=== PATIENT | female | born 1970 | race Caucasian/White ===

== ENCOUNTER 2023-09-28 10:20 | Outpatient (CLI) | payer BC, SELFPAY ==
[2023-09-28 10:14] LABS: Microscopic, Urine URINE MICROSCOPIC (MICROSCOPIC)
[2023-09-28 10:47] LABS: Appearance,Urine CLEAR (Clear); Bilirubin,Urine Negative (Negative); Blood, Urine Negative (Negative); Color,Urine YELLOW (Yellow); Glucose,Urine (UA) 3+ (Negative); Ketones,Urine Negative (Negative); Leukocyte Esterase,Urine Negative (Negative); Nitrate,Urine Negative (Negative); Protein,Urine TRACE (Negative); Specific Gravity, Urine 1.025 (1.005-1.030); Urobilinogen,Urine 0.2 EU/dl (0.2)
[2023-09-28 10:49] LABS: Basophils # 0.1 K/mm3 (0-0.2); Basophils % 1.4 % (0.1-2.0); Hematocrit 37.7 % (37.0-47.0); Hemoglobin 11.9 g/dL (12.2-16.2); Lymphocytes # 1.5 K/mm3 (0.7-4.5); Lymphocytes % 33.7 % (10-50); Mean Corpuscular HGB Conc 31.6 g/dL (31.8-35.4); Mean Corpuscular Hemoglobin 23.7 pg (27.0-31.2); Mean Corpuscular Volume 75.1 fl (81-99); Monocytes # 0.2 K/mm3 (0.1-1.0); Monocytes % 3.9 % (1.7-9.3); Neutrophils # 2.7 K/mm3 (1.8-7.8); Neutrophils % 59.9 % (37.0-80.0); Platelet Count 210 K/mm3 (142-424); Red Blood Count 5.02 M/mm3 (4.20-5.40); Red Cell Distribution Width 15.8 % (11.5-17.5); White Blood Count 4.5 K/mm3 (4.8-10.8)
[2023-09-28 10:57] LABS: Creatinine,Urine Random 233 mg/dL (Not Estab.)
[2023-09-28 11:00] LABS: Microalbumin/Creatinine Ratio 9.4
[2023-09-28 11:20] LABS: Bacteria,Urine Trace /lpf; Calcium Oxalate Crystals,Urine Trace /lpf; Mucus,Urine Trace /lpf; WBC,Urine Occasional #/hpf (0-3)
[2023-09-28 11:46] LABS: Chloride 100 mmol/L (98-107); Sodium 134 mmol/L (136-145)
[2023-09-28 11:47] LABS: Potassium 4.4 mmoL/L (3.5-5.1)
[2023-09-28 11:49] LABS: Alanine Aminotransferase 19 U/L (12-78); Albumin Level 4.1 g/dl (3.5-5.0); Albumin/Globulin Ratio 1.8 (1.1-1.8); Alkaline Phosphatase 99 U/L (38-126); Anion Gap 11.4 mEq/L (5-15); Aspartate Amino Transferase 25 U/L (14-36); Bilirubin,Total 0.7 mg/dl (0.2-1.3); Blood Urea Nitrogen 9 mg/dl (7-17); Calcium 9.2 mg/dl (8.4-10.2); Carbon Dioxide 27 mmol/L (22.0-30.0); Cholesterol 196 mg/dl (140-200); Estimated Glomerular Filt Rate 130 ml/min (>60); GFR (African American) 157 ML/MIN (>60); Globulin 2.3 g/dL (1.3-3.2); Glucose 318 mg/dl (74-100); Iron 45 ug/dL (37-170); Total Protein,Serum 6.4 g/dl (6.3-8.2); Triglycerides 77 mg/dl (30-150); VLDL Cholesterol 15 mg/dL (0-40)
[2023-09-28 11:50] LABS: Chol/HDL Ratio 2.6 (1-3.5); HDL Cholesterol 74 mg/dl (40-60)
[2023-09-28 11:56] LABS: Hemoglobin A1C 10.1 % (4.0-6.0)
[2023-09-28 11:59] LABS: Total Iron Binding Capacity 372 ug/dL (265-497)
[2023-09-28 12:10] LABS: Free T4 (Free Thyroxine) 1.04 ng/dl (0.78-2.19)
[2023-09-28 12:23] LABS: Thyroid Stimulating Hormone 0.93 uIU/mL (0.465-4.68)
[2023-09-28 12:26] LABS: Ferritin 4.99 ng/ml (11.1-264)
[2023-09-28 12:36] LABS: Direct LDL Cholesterol 97.12 mg/dL (100-129)
[2023-09-28 13:14] LABS: Vitamin B12 390 pg/mL (239-931)
[2023-09-28 14:50] LABS: 25-OH Vitamin D, Total 27.3 ng/mL (30-100)
== END 2023-09-28 23:59 | disposition home or self-care (01) ==
LOC: LAB.DROPOF 10:20
PROVIDERS: PCP Nurse Practitioner Family; Visit Provider Nurse Practitioner Family
DX: D64.9 Anemia, unspecified (principal); E11.9 Type 2 diabetes mellitus without complications; Z79.85 Long-term (current) use of injectable non-insulin antidiabetic drugs; Z79.84 Long term (current) use of oral hypoglycemic drugs; E78.5 Hyperlipidemia, unspecified; E55.9 Vitamin D deficiency, unspecified; R53.83 Other fatigue
CPT/HCPCS: 80050; 80053; 80061; 81001; 82043; 82306; 82570; 82607; 82728; 83036; 83540; 83550; 84439; 84443; 85025; 87086

== ENCOUNTER 2023-10-26 08:46 | Outpatient (CLI) | payer BC, SELFPAY ==
--- NOTE | 2023-10-26 08:47 | XR_ITS ---
FINAL REPORT TECHNIQUE: Bone densitometry calculations of the lumbar spine and left hip were obtained. CLINICAL HISTORY: History of multiple fractures, postmenopausal. COMPARISON: none FINDINGS: Using L1-4, the bone mineral density of the spine is 0.841 g/cm2, corresponding to T-score of -1.9 and a Z score of -1.0. This is within the range of osteopenia. Using the left hip, the bone mineral density of the femoral neck is 0.665 g/cm2, corresponding to a T-score of -1.7 and a Z-score of -0.8. This is within the range of osteopenia. NOTE: T-score: Standard deviation compared with peak bone mass of young adult mean. *Following the recommendations of the International Society of Bone densitometry, classification of hip BMD is based on the lower of two T-scores; total hip or femoral neck. IMPRESSION: 1. Bone mineral density of the lumbar spine within the range of osteopenia. 2. Bone mineral density of the left femoral neck within the range of osteopenia. Reviewed, Interpreted and Dictated by Denisse White MD Transcribed by Sol Singh Authenticated and [facility]
== END 2023-10-26 23:59 | disposition home or self-care (01) ==
LOC: RAD 08:47
PROVIDERS: PCP Nurse Practitioner Family; Visit Provider Nurse Practitioner Family
DX: Z78.0 Asymptomatic menopausal state (principal)
CPT/HCPCS: 77080

== ENCOUNTER 2023-12-07 11:06 | Outpatient (CLI) | payer BC, SELFPAY ==
[2023-12-07 11:22] LABS: Microscopic, Urine URINE MICROSCOPIC (MICROSCOPIC)
[2023-12-07 11:49] LABS: Basophils # 0.1 K/mm3 (0-0.2); Basophils % 1.6 % (0.1-2.0); Eosinophils # 0.1 K/mm3 (0.0-0.4); Eosinophils % 1.1 % (0.1-12.0); Hematocrit 38.9 % (37.0-47.0); Hemoglobin 12.1 g/dL (12.2-16.2); Lymphocytes # 1.5 K/mm3 (0.7-4.5); Lymphocytes % 32.5 % (10-50); Mean Corpuscular Hemoglobin 23.2 pg (27.0-31.2); Mean Corpuscular Volume 74.7 fl (81-99); Mean Platelet Volume 9.8 fl (7.4-10.4); Monocytes # 0.2 K/mm3 (0.1-1.0); Monocytes % 4.5 % (1.7-9.3); Neutrophils # 2.7 K/mm3 (1.8-7.8); Neutrophils % 60.3 % (37.0-80.0); Platelet Count 197 K/mm3 (142-424); Red Blood Count 5.21 M/mm3 (4.20-5.40); Red Cell Distribution Width 16.8 % (11.5-17.5); White Blood Count 4.5 K/mm3 (4.8-10.8)
[2023-12-07 11:52] LABS: Appearance,Urine CLEAR (Clear); Bilirubin,Urine Negative (Negative); Blood, Urine Negative (Negative); Color,Urine YELLOW (Yellow); Glucose,Urine (UA) 3+ (Negative); Ketones,Urine Negative (Negative); Leukocyte Esterase,Urine Negative (Negative); Nitrate,Urine Negative (Negative); Protein,Urine Negative (Negative); Urobilinogen,Urine 0.2 EU/dl (0.2)
[2023-12-07 12:06] LABS: Squamous Epithelial Cell,Urine Occasional #/hpf (0-5)
[2023-12-07 12:47] LABS: Iron 51 ug/dL (37-170)
[2023-12-07 12:57] LABS: Total Iron Binding Capacity 394 ug/dL (265-497)
[2023-12-07 13:24] LABS: Ferritin 5.64 ng/ml (11.1-264)
== END 2023-12-07 23:59 | disposition home or self-care (01) ==
LOC: LAB 11:09
PROVIDERS: PCP Nurse Practitioner Family; Visit Provider Internal Medicine Medical Oncology
DX: D50.9 Iron deficiency anemia, unspecified (principal)
CPT/HCPCS: 36415; 81001; 82728; 83540; 83550; 85025

== ENCOUNTER 2023-12-08 12:48 | Outpatient (CLI) | payer BC, SELFPAY ==
--- NOTE | 2023-12-08 12:50 | MM_ITS ---
PROCEDURE INFORMATION: Exam: MG Bilateral Screening 3D Mammography Exam date and time: 12/08/2023 12:46 PM Age: 53 years old Clinical indication: Screening mammogram. TECHNIQUE: Imaging protocol: Bilateral Screening tomosynthesis and 2D mammography including computer-aided detection (CAD) when performed. COMPARISON: No relevant prior studies available. FINDINGS: MAMMOGRAPHY: Breast composition: The breast is heterogeneously dense, which may obscure small masses. Mass: None. Architectural distortion: No new or suspicious architectural distortion. Calcifications: No new or suspicious calcifications are present Asymmetric density: No new or suspicious asymmetric density is present Skin thickening: None. Axillary adenopathy: None. IMPRESSION: No mammographic evidence of malignancy. Recommend annual screening mammography unless otherwise clinically indicated. ASSESSMENT: BI-RADS category 1: Negative.
== END 2023-12-08 23:59 | disposition home or self-care (01) ==
LOC: RAD 12:48
PROVIDERS: PCP Nurse Practitioner Family; Visit Provider Nurse Practitioner Family
DX: Z12.31 Encounter for screening mammogram for malignant neoplasm of breast (principal)
CPT/HCPCS: 77063; 77067

== ENCOUNTER 2023-12-20 09:42 | Outpatient (CLI) | payer BC, SELFPAY ==
[2023-12-20] MEDS: IRON SUCROSE COMPLEX 200 MG in 0.9 % SODIUM CHLORIDE 100 ML 220 MG IV (10:06)
[2023-12-20] MEDS: SODIUM CHLORIDE 0.9% 50ML BAG 50 ML IV (10:06)
[2023-12-20 10:10] VITALS: BP 108/65; PULSE 73; RESP 18; TEMP 36.4; O2SAT 100
[2023-12-20 10:55] VITALS: BP 117/68; PULSE 64; RESP 18; O2SAT 100
== END 2023-12-20 10:55 | disposition home or self-care (01) ==
LOC: INF 09:43
PROVIDERS: PCP Nurse Practitioner Family; Visit Provider Internal Medicine Medical Oncology
DX: D50.9 Iron deficiency anemia, unspecified (principal)
CPT/HCPCS: 96365; J1756

== ENCOUNTER 2023-12-27 09:53 | Outpatient (CLI) | payer BC, SELFPAY ==
[2023-12-27] MEDS: SODIUM CHLORIDE 0.9% 50ML BAG 50 ML IV (10:15)
[2023-12-27] MEDS: IRON SUCROSE COMPLEX 200 MG in 0.9 % SODIUM CHLORIDE 100 ML 220 MG IV (10:15)
[2023-12-27 10:18] VITALS: BP 108/63; PULSE 78; RESP 18; O2SAT 100
[2023-12-27 10:28] LABS: Alanine Aminotransferase 30 U/L (12-78); Albumin Level 4.1 g/dl (3.5-5.0); Albumin/Globulin Ratio 1.6 (1.1-1.8); Alkaline Phosphatase 81 U/L (38-126); Anion Gap 8.1 mEq/L (5-15); Aspartate Amino Transferase 36 U/L (14-36); Bilirubin,Total 0.7 mg/dl (0.2-1.3); Blood Urea Nitrogen 7 mg/dl (7-17); Calcium 9.1 mg/dl (8.4-10.2); Carbon Dioxide 29 mmol/L (22.0-30.0); Chloride 103 mmol/L (98-107); Estimated Glomerular Filt Rate 130 ml/min (>60); GFR (African American) 157 ML/MIN (>60); Globulin 2.6 g/dL (1.3-3.2); Glucose 310 mg/dl (74-100); Potassium 4.1 mmoL/L (3.5-5.1); Sodium 136 mmol/L (136-145); Total Protein,Serum 6.7 g/dl (6.3-8.2)
[2023-12-27 11:00] VITALS: BP 119/68; PULSE 77; RESP 18; O2SAT 100
[2023-12-27 13:06] LABS: Hemoglobin A1C 11.1 % (4.0-6.0)
[2023-12-27 23:15] LABS: 25-OH Vitamin D, Total 37.1 ng/mL (30-100)
== END 2023-12-27 11:00 | disposition home or self-care (01) ==
LOC: INF 09:54
PROVIDERS: PCP Nurse Practitioner Family; Visit Provider Internal Medicine Medical Oncology
DX: E11.9 Type 2 diabetes mellitus without complications (principal); E55.9 Vitamin D deficiency, unspecified; M85.80 Other specified disorders of bone density and structure, unspecified site; D50.9 Iron deficiency anemia, unspecified
CPT/HCPCS: 80053; 82306; 83036; 96365; J1756

== ENCOUNTER 2023-12-29 09:17 | Outpatient (CLI) | payer BC, SELFPAY ==
--- NOTE | 2023-12-29 09:21 | CT_ITS ---
FINAL REPORT TECHNIQUE: Pre-and postcontrast axial CT images of the abdomen and pelvis were obtained. Coronal reformatted images were also obtained and reviewed. This study was performed with techniques to keep radiation doses as low as reasonably achievable (ALARA). Individualized dose reduction techniques using automated exposure control or adjustment of mA and/or kV according to the patient's size were employed. CLINICAL HISTORY: LT FLANK PAIN. hx of nutcracker syndrome COMPARISON: None FINDINGS: Of the pre infusion images, there is no evidence of kidney stones. Postoperative changes are noted within bowel loops in the right hemiabdomen. On the post infusion images, the liver is homogeneous. The gallbladder is surgically absent. The spleen, pancreas, adrenal glands, and kidneys are unremarkable. There are multiple fluid-filled loops of bowel in the right hemiabdomen, particularly in the right upper quadrant, probably postsurgical. Vascular imaging demonstrates markedly compressed left renal vein by the crossing superior mesenteric artery, best seen on images 33-36 of series 5. Findings are consistent with patient's known history of nutcracker syndrome. There is altered surgical anatomy and the duodenum is not seen crossing the aorta. Imaging through the pelvis demonstrates asymmetric left pelvic venous congestion. The urinary bladder is decompressed. The uterus is midline. IMPRESSION: Extrinsic compression of the left renal vein with left gonadal venous congestion. Postoperative changes in the right upper quadrant with fluid-filled loops of small bowel. Reviewed, Interpreted and Dictated by Mc Rod MD Transcribed by Sol Singh Authenticated and [facility]
[2023-12-29] MEDS: IOPAMIDOL-370 (76%);100ML BOTTLE 75 ML IV (09:42)
[2023-12-29] MEDS: SODIUM CHLORIDE 0.9% 10ML SYR (RAD ONLY) 10 ML IV (09:42)
== END 2023-12-29 23:59 | disposition home or self-care (01) ==
LOC: RAD 09:18
PROVIDERS: PCP Nurse Practitioner Family; Visit Provider Nurse Practitioner Family
DX: R10.9 Unspecified abdominal pain (principal)
CPT/HCPCS: 74178; Q9967

== ENCOUNTER 2024-01-03 09:42 | Outpatient (CLI) | payer BC, SELFPAY ==
[2024-01-03 10:00] VITALS: BP 98/60; PULSE 62; RESP 18; TEMP 36.4; O2SAT 100
[2024-01-03] MEDS: SODIUM CHLORIDE 0.9% 50ML BAG 50 ML IV (10:00)
[2024-01-03] MEDS: IRON SUCROSE COMPLEX 200 MG in 0.9 % SODIUM CHLORIDE 100 ML 220 MG IV (10:00)
[2024-01-03] MEDS: SODIUM CHLORIDE 0.9% 10ML FLUSH SYRINGE 10 ML IV (10:00)
[2024-01-03 10:35] VITALS: BP 108/61; PULSE 84; RESP 16; TEMP 36.4; O2SAT 100
== END 2024-01-03 10:40 | disposition home or self-care (01) ==
LOC: INF 09:42
PROVIDERS: PCP Nurse Practitioner Family; Visit Provider Internal Medicine Medical Oncology
DX: D50.9 Iron deficiency anemia, unspecified (principal)
CPT/HCPCS: 96365; J1756

== ENCOUNTER 2024-01-10 08:47 | Outpatient (CLI) | payer BC, SELFPAY ==
[2024-01-10 09:07] VITALS: BP 127/59; PULSE 78; RESP 16; TEMP 36.1; O2SAT 100; BMI 20.5
[2024-01-10] MEDS: IRON SUCROSE COMPLEX 200 MG in 0.9 % SODIUM CHLORIDE 100 ML 220 MG IV (09:10)
[2024-01-10] MEDS: SODIUM CHLORIDE 0.9% 50ML BAG 50 ML IV (09:21)
[2024-01-10] MEDS: SODIUM CHLORIDE 0.9% 10ML FLUSH SYRINGE 10 ML IV (09:22)
[2024-01-10 09:49] VITALS: BP 107/67; PULSE 87; RESP 18; TEMP 36.1; O2SAT 100
== END 2024-01-10 09:50 | disposition home or self-care (01) ==
LOC: INF 08:48
PROVIDERS: PCP Nurse Practitioner Family; Visit Provider Internal Medicine Medical Oncology
DX: D50.9 Iron deficiency anemia, unspecified (principal)
CPT/HCPCS: 96365; J1756

== ENCOUNTER 2024-01-17 08:50 | Outpatient (CLI) | payer BC, SELFPAY ==
[2024-01-17 09:07] VITALS: BP 113/63; PULSE 78; RESP 18; TEMP 36.9; O2SAT 100
[2024-01-17] MEDS: SODIUM CHLORIDE 0.9% 50ML BAG 50 ML IV (09:07)
[2024-01-17] MEDS: IRON SUCROSE COMPLEX 200 MG in 0.9 % SODIUM CHLORIDE 100 ML 220 MG IV (09:07)
[2024-01-17] MEDS: SODIUM CHLORIDE 0.9% 10ML FLUSH SYRINGE 10 ML IV (09:08)
[2024-01-17 09:51] VITALS: BP 123/61; PULSE 81; RESP 16; TEMP 36.7; O2SAT 100
== END 2024-01-17 09:51 | disposition home or self-care (01) ==
LOC: INF 08:51
PROVIDERS: PCP Nurse Practitioner Family; Visit Provider Internal Medicine Medical Oncology
DX: D50.9 Iron deficiency anemia, unspecified (principal)
CPT/HCPCS: 96365; J1756

== ENCOUNTER 2024-05-25 13:30 | Outpatient (CLI) | payer BC, SELFPAY | END 2024-05-25 23:59 | disposition home or self-care (01) | LOC: LAB.DROPOF 05-26 09:58 | PROVIDERS: PCP Student in an Organized Health Care Education/Training Program; Visit Provider Student in an Organized Health Care Education/Training Program | DX: N39.0 Urinary tract infection, site not specified (principal) | CPT/HCPCS: 87086 ==

== ENCOUNTER 2024-07-27 11:15 | Observation (INO) | payer BC, SELFPAY ==
[2024-07-27] VITALS (15 sets, daily range): BP systolic 111–141; BP diastolic 55–86; PULSE 60–100; RESP 14–22; TEMP 36.4–36.7; O2SAT 95–100; BMI 20.5
--- NOTE | 2024-07-27 11:16 | ECG_ITS ---
APPROVED REPORT Exam: Resting ECG HR:75 bpm ECG Measurements Heart Rate 75 AXES [place] 126 P 66 QRSd 85 QRS 84 QT 356 T 29 QTc 385 Conclusion Sinus rhythm Frequent PVCs Nonspecific ST and T wave changes Electronically signed by : MANAS VELA, 07/27/2024 15:28:04
--- NOTE | 2024-07-27 11:23 | XR_ITS ---
FINAL REPORT CLINICAL HISTORY: chest pain, left sided FINDINGS: A single view of the chest was obtained. The heart is normal in size. The mediastinum is unremarkable. The lungs are clear. There is no pleural effusion. There is no pneumothorax. There is no acute osseous abnormality. IMPRESSION: No acute cardiopulmonary process. Reviewed, Interpreted and Dictated by Mc Rod MD Transcribed by Karen Campuzano Authenticated and [facility]
[2024-07-27 11:30] LABS: Basophils # 0.1 K/mm3 (0-0.2); Basophils % 0.7 % (0.1-2.0); Eosinophils % 0.3 % (0.1-12.0); Hematocrit 43.9 % (37.0-47.0); Hemoglobin 14.8 g/dL (12.2-16.2); Lymphocytes # 1.4 K/mm3 (0.7-4.5); Lymphocytes % 20.2 % (10-50); Mean Corpuscular HGB Conc 33.7 g/dL (31.8-35.4); Mean Corpuscular Hemoglobin 27.6 pg (27.0-31.2); Mean Corpuscular Volume 81.8 fl (81-99); Mean Platelet Volume 11.3 fl (7.4-10.4); Monocytes # 0.4 K/mm3 (0.1-1.0); Monocytes % 6.1 % (1.7-9.3); Neutrophils # 4.9 K/mm3 (1.8-7.8); Neutrophils % 72.4 % (37.0-80.0); Nucleated Red Blood Cells # 0 10^3/uL; Nucleated Red Blood Cells % 0 %; Platelet Count 231 K/mm3 (142-424); Red Blood Count 5.37 M/mm3 (4.20-5.40); Red Cell Distribution Width 12.8 % (11.5-17.5); Red Cell Distribution Width-SD 37.9 fL; White Blood Count 6.7 K/mm3 (4.8-10.8)
--- OUTSIDE RECORDS SUMMARY | 2024-07-27 11:35 | XMS_ITS | Data Portability ---
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 Rodgers is a 53 year old female here for: 1) Lower abdominal pain 2) Nausea - Continue peppermints for nausea. If needs Zofran prescription she will call clinic. - Lower abdominal pain, cramping and intermittent in nature - Discussed diagnostic colon with random colon biopsies. She declines at this time. - Trial dicyclomine for abdominal cramping as needed (script sent) - Consider gynecology referral at next visit to r/o fibroids, ovarian cysts or endometriosis 3)Diarrhea - She reports no issues with constipation when she stopped her metformin - She does have history of choley so this could be bile acid diarrhea but since symptoms resolved when she stopped taking metformin, I will refer to Endocrine. 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 Reports diarrhea stopped when she quit taking metformin -Ozempic will only make her delayed gastric emptying worse. -She previously tried jardiance which cause heart arrhythmias. She was also placed on insulin once and reports 20 lb. weight gain in 1 week so it was stopped -States glucose range is 180-230 -She would like Endocrine referral to discuss other treatment options [email or web address] Not available 12/06/2023 14:37:25 Plan of Treatment Reminders Order Date Submit Date Provider Last Modified By Organization Details Last Modified Time Details Appointments None record ed. Lab urinal ysis, reflex cultur e 2023 024 [email or web address] [facility] (Lab), [address], [place], [address], 4 15:30:48 Referral None record ed. Procedures None record ed. Surgeries None record ed. Imaging CT, angiog alvin, abdome n + pelvis , w/wo contra st 2023 024 [email or web address] [facility] (Scheduling), [address], [place], [address], 4 14:33:28 Medication Orders dicycl omine 20 mg tablet 2023 024 [id number], [address] [facility] [address] [place], [id number], 4 14:24:09 Patient TargetsNo targets recorded. Patient InstructionsNo instructions recorded. Reason for Referral None Reported. Results Created Date Observation Date Name Description Value Unit Range Abnormal Flag Note LastModifiedBy Organization Detail LastModifiedTime 12/30/19 24 12/29/2023 CT, abdom en + pelvi s, w/wo contr ast No observ ation record ed. [facility] (Scheduling) [address], [place], [address], 02/17/2024 09:20:30 Result Notes None recorded. Procedures Surgical History None recorded. Imaging Results Imaging Date Name Status LastModified by Organiz ation Details LastModified Time 12/29/2023 CT, abdomen + pelvis, w/wo contrast completed [facility] (Scheduling) [address], [place], [id number], 02/17/2024 09:20:30 Procedure Notes None recorded. Medical Equipment None Reported. Allergies Allergen ID Allergen Name Allergen Category Reaction Reaction Severity Criticality Documentation Date Start Date Code Code System Note Provider Name and Address Organization Details Recorded Time [id number] Substance with sulfonami de structure and antibacte rial mechanism of action (substanc e) medicatio n anaphylax is severe Not available 12/01/2023 12279 8003 SNOMED Angelica Salinas [facility], [place] - [facility] & [place] 4 13:18:47 Medications Name Sig Start Date Stop Date Status Note LastModified by Organization Details LastModified Time dicyclomine 20 mg tablet TAKE 1 TABLET BY MOUTH 4 TIMES DAILY NEEDED FOR ABDOMINAL PAIN active Not Available Not Available No t Available albuterol sulfate HFA 90 mcg/actuatio n aerosol inhaler INHALE 2 PUFFS BY MOUTH EVERY 4 TO 6 HOURS NEEDED FOR SHORTNESS OF BREATH OR WHEEZING active Not Available Not Available Not Available metformin ER 500 mg tablet,exten ded release 24 hr TAKE 2 TABLETS BY MOUTH 2 TIMES DAILY active Not Available Not Available Not Available duloxetine 20 mg capsule,kannan yed release TAKE ONE CAPSULE BY MOUTH EVERY MORNING AND MIDDAY AND 2 CAPSULES BY MOUTH EVERY NIGHT AT BEDTIME active Not Available Not Available N ot Available Probiotic active Not Available Not Sonia ilable Not Available Ozempic 1 mg/dose (4 mg/3 mL) subcutaneous pen injector ADMINISTER 1 MG UNDER THE SKIN WEEKLY active Not Available Not Available No t Available calcium 1,000 mg (as calcium carbonate 2,500 mg) effervescent tablet Take by oral route. active Not Available Not Available Not Available vit D3 50 mcg-vitamin K1 500 mcg-MK4 1,500 mcg-MK7 180 mcg capsule Take by oral route. active Not Available Not Available Not Available Vitals Date Recorded Body weight Body mass index (BMI) Body height Body temperature Oxygen saturation Oxygen saturation in Arterial blood by Pulse oximetry Heart rate Heart rate Systolic blood pressure Diastolic blood pressure Provider Name and Address Organization Details Last Updated DateTime 4 33588.5 1 g 21.1 kg/m2 165.1 cm 98.1 [degF] 100 % 100 % 84 /min 86 /min 130 mm[Hg] 73 mm[Hg] Angelica GALLO - LPNT [facility] & [place] 13:18:25 Social History Question Answer Notes LastModified by Organizat ion Details LastModified Time Tobacco Smoking Status Never Smoker [facility]ica keenan, [place] [facility] [place] 12/01/2023 13:21:03 What Is Your Level Of Alcohol Consumption? Occasional [email or web address] Information not available 12/01/2023 What Is Your Level Of Caffeine Consumption? 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 No [email or web address] Information not available 12/01/2023 Do You Or Have You Ever Used Any Other Forms Of Tobacco Or Nicotine? No [email or web address] Information not available 12/01/2023 Sex: Unknown Functional Status None recorded. Mental Status None recorded. Family History Nothing Reported. Medical History No medical history recorded. Gynecological HistoryNo gynecological history recorded. Obstetrics History GPAL:G 0 P 0 0 0 0 Past Encounters Encounter ID Performer Location Encounter Start Date Encounter Closed Date Diagnosis/Indication Diagnosis SNOMED-CT Code Diagnosis ICD10 Code Diagnosis Note [id number] ZARA VEE NP [facility] [address] [address] 12/01/2023 13:00:49 12/01/2023 14:26:15 Abdominal pain 07089128 R10.9 Left flank pain 91368829 9 R10.9 Type 2 cole betes mellitus 30371281 E11.9 Left renal vein entrapment syndrome 637580915 I87.1 Diarrhea 63608770 R19.7 Nausea 838712039 R11.0 Delayed ga stric emptying 919504753 K30 Health Concerns Section Related Observation LastModified by Organization Detai ls LastModified Time None Recorded Concern Status LastModified by Organization Details LastModified Time None Recorded Advance Directives Directive None Recorded Payers Encounter Date Sequence Insurance Name Policy Number Policy Adams Covered Member ID Adams Member ID Guarantor Name 12/01/2023 1 [place] [employer] ([place]) [id number] Corina Rodgers [id number] Corina Rodgers Notes Date Note Type Note Provider Name and Address Organization Details Recorded Time 12/01/2023 text/html is a 53-year-old patient with Type 2 diabetes, 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 She recently relocated from [place] where she received all her previous care. She reports in 2003 she had a volvulus which required 3 procedures to correct. She has had left flank pain and lower abdominal cramping for years. She saw a vascular surgeon in [place] which told her symptoms were likely due to GI. She endorses a lot of nausea, abdominal pain and diarrhea. Symptoms mildly improved with hot pack and peppermint. Recently she was awakened at night due to increased abdominal pain and vomiting. She was started on metformin and Ozempic for her type 2 diabetes. She does not have a gallbladder. She reports which she stopped metformin her diarrhea stopped. She also endorses history of gastroparesis. However she states her PCP wants her to continue metformin and Ozempic. She has not been able to use Jardiance or insulin in the past, but feels metformin and Ozempic are not helpful. She is interested in endocrine referral today. She had EGD 25 years ago. Last colonoscopy was 2020. She denies any blood in her stool or dark, tarry bowel movements. ZARA VEE, [employer] WAITRESS/WAITER [address], [place], [address], [facility] - [place] - [place] & [place] 12/06/2023 14:39:09 OBGyn Episode No OBEpisode recorded.
[2024-07-27 11:36] LABS: Chloride 97 mmol/L (98-107)
[2024-07-27 11:37] LABS: Potassium 4.1 mmoL/L (3.5-5.1); Sodium 134 mmol/L (136-145)
[2024-07-27 11:39] LABS: Blood Urea Nitrogen 7 mg/dl (7-17); Creatinine Clearance Estimated 143 mL/min (50-200); Estimated Glomerular Filt Rate 167 ml/min (>60); GFR (African American) 202 ML/MIN (>60)
[2024-07-27 11:40] LABS: Alanine Aminotransferase 61 U/L (12-78); Albumin/Globulin Ratio 1.7 (1.1-1.8); Alkaline Phosphatase 134 U/L (38-126); Anion Gap 15.1 mEq/L (5-15); Aspartate Amino Transferase 189 U/L (14-36); Bilirubin,Total 1.1 mg/dl (0.2-1.3); Calcium 9.6 mg/dl (8.4-10.2); Carbon Dioxide 26 mmol/L (22.0-30.0); Globulin 2.9 g/dL (1.3-3.2); Total Protein,Serum 7.9 g/dl (6.3-8.2)
[2024-07-27 11:43] LABS: Glucose 430 mg/dl (74-100)
[2024-07-27] MEDS: PROMETHAZINE HCL 25MG/ML 1ML VIAL 12.5 MG IV (11:44)
[2024-07-27] MEDS: PANTOPRAZOLE 40MG VIAL 40 MG IV (11:44)
[2024-07-27] MEDS: 0.9 % SODIUM CHLORIDE 1000ML 1,000 ML 999 ML IV (11:45)
[2024-07-27] MEDS: SODIUM CHLORIDE 0.9% 25ML BAG 25 ML IV (11:45)
[2024-07-27 11:46] LABS: Lipase 63 U/L (23-300)
[2024-07-27 11:57] LABS: Troponin I < 0.01 ng/ml (0.00-0.034)
[2024-07-27 12:04] LABS: Microscopic, Urine URINE MICROSCOPIC (MICROSCOPIC)
[2024-07-27 12:07] LABS: Appearance,Urine CLEAR (Clear); Bilirubin,Urine Negative (Negative); Blood, Urine Negative (Negative); Color,Urine YELLOW (Yellow); Glucose,Urine (UA) 3+ (Negative); Ketones,Urine 2+ (Negative); Leukocyte Esterase,Urine Negative (Negative); Nitrate,Urine Negative (Negative); PH,Urine 7.5 (5.0-8.5); Protein,Urine Negative (Negative); Specific Gravity, Urine 1.015 (1.005-1.030); Urobilinogen,Urine 0.2 EU/dl (0.2)
[2024-07-27] MEDS: POTASSIUM CHLORIDE 20MEQ TAB 60 MEQ PO (12:14)
[2024-07-27] MEDS: INSULIN HUMAN REGULAR 100 UNITS/ML 10ML VIAL 6 UNIT IV (12:15)
--- NOTE | 2024-07-27 12:22 | PC.NURSE ---
Notified respiratory and lab that there is a green top sent up for a VBG
[2024-07-27 12:28] LABS: VBG Base Excess -0.7 mmol/L (-2.4-2.3); VBG HCO3 23.9 mmol/L (23-30); VBG Oxygen Saturation 70.4 % (50-70); VBG PCO2 38.1 mmol/L (35-51); VBG PH 7.42 mmol/L (7.31-7.41); VBG PO2 36.2 mmol/L (28-40); VBG Total CO2 25.1 mmol/L (23-27)
[2024-07-27 12:30] LABS: Lactate Venous 2.5 mmol/L (0.4-2.0)
[2024-07-27 12:34] LABS: HIV Combo NEGATIVE (Negative)
--- NOTE | 2024-07-27 12:35 | CT_ITS ---
FINAL REPORT TECHNIQUE: Thin section axial images were obtained through the abdomen and pelvis after contrast injection per CT angiogram protocol. Multiplanar reconstruction images were obtained from the axial data. This exam was performed with techniques to keep radiation dose as low as reasonably achievable. This includes automated exposure control, adjustment of the MA and KVP, and iterative reconstruction technique. CLINICAL HISTORY: nutcracker syndrome, numerous abd surgeries, vomit COMPARISON: 12/29/2023 CT abdomen and pelvis FINDINGS: CTA: No abdominal aortic aneurysm or aortic dissection. The celiac axis and superior mesenteric artery are patent without stenosis. The renal arteries are patent. The left renal vein compression noted on the prior CT is once again identified, best seen on images #39 through 44 of series 5. There are once again prominent retroperitoneal and pelvic veins noted on the left side, secondary to the compromise of the left renal vein. The common iliac arteries and visualized portions of the internal and external iliac arteries are patent. No significant stenosis. NONVASCULAR: The gallbladder has been surgically resected. The duodenum is once again noted to not cross the aorta. Multiple rows of suture are noted in the right hemiabdomen. The solid abdominal organs are without acute abnormality. There are multiple fluid-filled loops of small bowel. Moderate stool is noted in the colon. No lymphadenopathy or free fluid. No acute osseous abnormality. IMPRESSION: Multiple fluid-filled loops of small bowel are again noted. Once again identified is left renal vein compromise with prominent retroperitoneal and pelvic collateral veins on the left side. Moderate stool is present in the colon. Reviewed, Interpreted and Dictated by Mc Rod MD Transcribed by Dionna Azul Authenticated and . [facility]
[2024-07-27 12:37] LABS: Hemoglobin A1C 11.3 % (4.0-6.0)
[2024-07-27 12:41] LABS: Hepatitis C Ab Qual. W/ RFX NEGATIVE (Negative)
[2024-07-27] MEDS: SODIUM CHLORIDE 0.9% 10ML SYR (RAD ONLY) 10 ML IV (12:57)
[2024-07-27] MEDS: 0.9 % SODIUM CHLORIDE 50 ML VIAL IV (12:57)
[2024-07-27] MEDS: IOPAMIDOL-370 (76%);100ML BOTTLE 80 ML IV (12:58)
[2024-07-27 13:10] LABS: POC Glucose,Bedside 232 (70-110)
--- NOTE | 2024-07-27 13:24 | HMH.EDGENADL ---
Discharge Plan Disposition Patient Disposition: Admitted Chief Complaint: Chest Pain Prescriptions Prescriptions: No Action albuterol sulfate 90 mcg/actuation HFA aerosol inhaler 2 puff INHALATION Q4HP PRN (Reason: Shortness Of Breath Or Wheezing) Patient Comments: INHALE 2 PUFFS BY MOUTH EVERY 4 TO 6 HOURS NEEDED FOR SHORTNESS OF BREATH OR WHEEZING metformin 500 mg tablet extended release 24 hr 1,000 mg PO BID Patient Comments: TAKE 2 TABLETS BY MOUTH 2 TIMES DAILY Ozempic 1 mg/dose (4 mg/3 mL) pen injector 1 mg SQ WEEKLY Referrals Follow up/Referrals: Melinda Moeller APRN [Primary Care Provider] - See instructions Clinical Impressions Clinical Impression: DKA (diabetic ketoacidosis), Vomiting, Abdominal pain Print Language Print Language: Hong [place]er Discharge ED Provider: David Quiroz General Adult HPI General Chief complaint: Chest Pain Stated complaint: Chest Pain Time Seen by Provider: 07/27/24 11:17 Mode of Arrival: Ambulatory Source of Information: Patient Description of Symptoms (Recalled from ER Triage Doc. by RN): patient states around 9 am she developed pressure under her left breast that is intermittment she also reports dizziness. History of Present Illness HPI narrative: Please note that above description of symptoms, in this electronic medical record under categorization of recalled from ER triage doctor by RN are reflective of an initial nursing assessment, however, is not reflective of my full history and physical exam that was personally taken and clarified. Consequentially, this preceding description of symptoms, which may include the patient's categorized chief complaint in the EMR, do not reflect my personal clinical impression, and the ultimate description of history of present illness and patient stated complaints should be deferred to this section of the note. Unless stated otherwise or congruent with this section of the note, additional signs, symptoms, or incongruence should be interpreted as inaccurate with my clinical impression. Related Data Home Medications ?Medication ?Instructions ?Recorded ?Confirmed albuterol sulfate 90 mcg/actuation 2 puff inhalation Q4HP PRN 07/27/24 07/27/24 aerosol inhaler Shortness Of Breath Or Wheezing metformin 500 mg tablet,extended 1,000 mg PO BID 07/27/24 07/27/24 release 24 hr semaglutide 1 mg/dose (4 mg/3 mL) 1 mg SQ WEEKLY 07/27/24 07/27/24 subcutaneous pen injector (Ozempic) Allergies Allergy/AdvReac Type Severity Reaction Status Date / Time Sulfa (Sulfonamide Allergy Severe Anaphylaxis Verified 05/25/24 09:01 Antibiotics) dapagliflozin (From Farxiga) Allergy Intermediate yeast Verified 05/25/24 09:01 infection empagliflozin (From Allergy Intermediate yeast Verified 05/25/24 09:01 Jardiance) infection [facility] Disclaimer: The information contained in this section may have been updated after the patient was seen, as this information can be updated by other users. Medical History Ankle fracture, right Multiple fractures Malrotation of intestine Vaginal pain Tricuspid regurgitation Primary thrombotic microangiopathy Migraine Menorrhagia MDD (major depressive disorder), severe Insomnia Hyperlipidemia Hot flashes Right groin pain Vitamin D deficiency Cardiac murmur Asthma Anemia Nutcracker phenomenon of renal vein Type 2 diabetes mellitus Surgical History History of Hx of cholecystectomy History of appendectomy H/O inguinal hernia repair History of femoral hernia repair History of colonoscopy H/O shoulder surgery Family History No significant family history Family/Other Social History Smoking Status: Never smoker alcohol intake: current alcohol intake frequency: a few times a month substance use type: former substance user and marijuana current occupational status: unemployed Travel in the last 8 weeks: Inside the [place] Have you lived/traveled outside [place] in past 30 days?: No Contact w/someone who lives/traveled outside US past 30 days?: No Exposure to someone with infectious disease in past 14 days?: No Do you have a fever (greater than 100.4 F or 38 C)?: No Have you tested positive for COVID-19: No Exposed to someone with COVID-19 in past 14 days?: No Do you have a sore throat?: No Do you have a cough?: No Do you have any weakness?: No Do you have any diarrhea?: No Are you experiencing any unusual bleeding?: No Do you have any muscle aches/pain?: No Do you have any abdominal pain?: No Are you experiencing loss of taste or smell?: No Other Medical History Have you received the Pneumonia Vaccine: No ROS Obtained: Yes All systems reviewed & no additional complaints except as documented Physical Exam General General appearance: alert and in distress (Secondary to bdominal pain and retching) Head Head exam: atraumatic and normocephalic Eye Eye exam: Present normal appearance, PERRL and EOMI Neck Neck exam: Present normal inspection, full ROM and trachea midline Respiratory Respiratory exam: Absent respiratory distress, wheezes, stridor, accessory muscle use or prolonged expiratory phase Cardiovascular Cardiovascular exam: Present other (Pulses equal symmetric in upper and lower extremities) Abdominal Exam Abdominal exam: Present soft and tenderness; Absent distention, guarding, rebound or pulsatile mass Abdominal tenderness: Present epigastrium, diffuse and moderate Extremities Exam Extremities exam: Absent edema Neurological Exam Neurological exam: Present alert, oriented X3 and CN II-XII intact; Absent motor sensory deficit Skin Skin exam: Present warm and dry; Absent diaphoresis or erythema Medical Decision Making Medical Records Medical records reviewed: Yes I reviewed the patient's medical records. Screening: Per USPSTF and CDC recommendations, given the prevalence of disease in our region, it is our hospital?s policy to screen for HIV and viral Hepatitis for all patients aged 18 and over and those with ongoing risk factors. Waqas Inquiry Pt receiving controlled substance: No Waqas was queried for this patient: No Vital Signs: 07/27/24 11:22 07/27/24 11:29 07/27/24 11:31 Temperature 97.6 F Temperature Source Oral Pulse Rate 74 84 Pulse Rate [Right Radial] 74 Respiratory Rate 22 22 Blood Pressure 140/85 Blood Pressure [Right Arm] 141/84 H Blood Pressure Mean [Right Arm] 103 Blood Pressure Source [Right Arm] Automatic Cuff Blood Pressure Position [Right Arm] Sitting 02 Sat by Pulse Oximetry 100 100 Oxygen Delivery Method Room Air Room Air 07/27/24 11:52 07/27/24 12:00 07/27/24 12:30 Temperature Temperature Source Pulse Rate 62 60 76 Pulse Rate [Right Radial] Respiratory Rate 19 15 15 Blood Pressure 124/58 L 125/55 L 131/57 L Blood Pressure [Right Arm] Blood Pressure Mean [Right Arm] Blood Pressure Source [Right Arm] Blood Pressure Position [Right Arm] 02 Sat by Pulse Oximetry 100 100 98 Oxygen Delivery Method Room Air Room Air Room Air 07/27/24 13:00 07/27/24 13:30 07/27/24 14:00 Temperature Temperature Source Pulse Rate 82 74 68 Pulse Rate [Right Radial] Respiratory Rate 14 14 14 Blood Pressure 124/68 129/64 122/63 Blood Pressure [Right Arm] Blood Pressure Mean [Right Arm] Blood Pressure Source [Right Arm] Blood Pressure Position [Right Arm] 02 Sat by Pulse Oximetry 100 100 99 Oxygen Delivery Method Room Air Room Air Room Air 07/27/24 14:35 Temperature Temperature Source Pulse Rate 85 Pulse Rate [Right Radial] Respiratory Rate 18 Blood Pressure 137/86 Blood Pressure [Right Arm] Blood Pressure Mean [Right Arm] Blood Pressure Source [Right Arm] Blood Pressure Position [Right Arm] 02 Sat by Pulse Oximetry 100 Oxygen Delivery Method Room Air Lab Data Lab Results 07/27/24 11:15: WBC 6.7, RBC 5.37, Hgb 14.8, Hct 43.9, MCV 81.8, MCH 27.6, MCHC 33.7, RDW 12.8, Plt Count 231, MPV 11.3 H, Neut % (Auto) 72.4, Lymph % (Auto) 20.2, Rush % (Auto) 6.1, Eos % (Auto) 0.3, Baso % (Auto) 0.7, Neut # (Auto) 4.9, Lymph # (Auto) 1.4, Rush # (Auto) 0.4, Eos # (Auto) 0.0, Baso # (Auto) 0.1, Sodium 134 L, Potassium 4.1, Chloride 97 L, Carbon Dioxide 26, Anion Gap 15.1 H, BUN 7, Creatinine 0.40 L, Estimated Creat Clear 143, Estimated GFR 167, Est GFR ( Amer) 202, Glucose 430 H*, Calcium 9.6, Total Bilirubin 1.1, AST 189 H, ALT 61, Alkaline Phosphatase 134 H, Troponin I < 0.01, Total Protein 7.9, Albumin 5.0, Globulin 2.9, Albumin/Globulin Ratio 1.7, Lipase 63, HCV Ab DANIELA w/Rflx PCR Qn Negative, HIV Ag/Ab Combo Qual Negative 07/27/24 11:19: Hemoglobin A1c 11.3 H 07/27/24 11:58: Urine Color Yellow, Urine Appearance Clear, Urine pH 7.5, Ur Specific Rose 1.015, Urine Protein Negative, Urine Glucose (UA) 3+, Urine Ketones 2+, Urine Blood Negative, Urine Nitrate Negative, Urine Bilirubin Negative, Urine Urobilinogen 0.2, Ur Leukocyte Esterase Negative, Urine RBC None, Urine WBC None, Ur Squamous Epith Cells None, Urine Bacteria None 07/27/24 12:25: VBG pH 7.42 H, VBG pCO2 38.1, VBG pO2 36.2, VBG HCO3 23.9, VBG Total CO2 25.1, VBG O2 Saturation 70.4 H, VBG Base Excess -0.7, VBG Lactic Acid 2.5 H 07/27/24 13:03: POC Glucose 232 H 07/27/24 14:36: Troponin I < 0.01 07/27/24 11:15 07/27/24 11:15 Orders (Tests/Meds): ED MEDICATIONS Generic Name Dose Route Start Last Admin Trade Name Kobyq PRN Reason Stop Dose Admin Lactated Ringer's 1,000 mls @ 125 mls/hr 07/27/24 14:45 Lactated Ringer's 1000 Ml Bag IV 07/27/24 22:44 .Q8H ISSAC Insulin Human Lispro 0 unit 07/27/24 16:30 Humalog 100 Units/Ml 10ml Vial (Ssi) SUBCUT 08/26/24 16:29 ACHS ISSAC Protocol Sodium Chloride 10 ml 07/27/24 11:23 Sodium Chloride 0.9% 10ml Flush Syringe IV 08/26/24 11:22 NEEDED PRN Maintain IV Site Sodium Chloride 10 ml 07/27/24 11:32 Sodium Chloride 0.9% 10ml Vial IV 08/26/24 11:31 NEEDED PRN dilute protonix Sodium Chloride 8 ml 07/27/24 14:41 Sodium Chloride 0.9% 10ml Vial IV 08/26/24 14:40 NEEDED PRN dilute pepcid Discontinued Medications Generic Name Dose Route Start Last Admin Trade Name Freq PRN Reason Stop Dose Admin Famotidine 20 mg 07/27/24 14:41 07/27/24 14:51 Famotidine 20mg/2ml Vial IV 07/27/24 14:42 20 mg ONCE ONE Administration Sodium Chloride 1,000 mls @ 999 mls/hr 07/27/24 11:32 07/27/24 11:45 Sod Chlor 0.9% 1000ml Bag IV 07/27/24 12:32 999 mls/hr .Q1H1M ONE Administration Lactated Ringer's 1,000 mls @ 999 mls/hr 07/27/24 11:56 07/27/24 13:48 Lactated Ringer's 1000 Ml Bag IV 07/27/24 12:56 999 mls/hr .Q1H1M ONE Administration Insulin Glargine 10 unit 07/27/24 15:00 Insulin Glargine 100 Units/Ml 10ml Vial SUBCUT 07/27/24 15:01 ONCE ONE Insulin Human Regular 6 unit 07/27/24 11:56 07/27/24 12:15 Insulin Human Regular 100 Units/Ml 10ml Vial 0.1 unit/kg (6 unit) 07/27/24 11:57 6 unit IV Administration ONCE ONE Iopamidol 80 ml 07/27/24 12:53 07/27/24 12:58 Iopamidol-370 (76%);100ml Bottle IV 07/27/24 12:54 80 ml ONCE ONE Administration Ketorolac Tromethamine 15 mg 07/27/24 14:41 07/27/24 14:51 Ketorolac 30mg/Ml Vial IV 07/27/24 14:42 15 mg ONCE ONE Administration Metoclopramide HCl 10 mg 07/27/24 14:41 07/27/24 14:51 Metoclopramide Hcl 10mg/2ml Vial IVP 07/27/24 14:42 10 mg ONCE ONE Administration Pantoprazole Sodium 40 mg 07/27/24 11:32 07/27/24 11:44 Pantoprazole 40mg Vial IV 07/27/24 11:33 40 mg ONCE ONE Administration Potassium Chloride 60 meq 07/27/24 11:56 07/27/24 12:14 Potassium Chloride 20meq Tab PO 07/27/24 11:57 60 meq ONCE ONE Administration Promethazine HCl 12.5 mg 07/27/24 11:32 07/27/24 11:44 Promethazine Hcl 25mg/Ml 1ml Vial IV 07/27/24 11:33 12.5 mg ONCE ONE Administration Sodium Chloride 25 ml 07/27/24 11:32 07/27/24 11:45 Sodium Chloride 0.9% 25ml Bag IV 07/27/24 11:33 25 ml ONCE ONE Administration Sodium Chloride 50 ml 07/27/24 12:53 07/27/24 12:57 0.9 % Sodium Chloride 50 Ml Vial IV 07/27/24 12:54 50 ml ONCE ONE Administration Sodium Chloride 10 ml 07/27/24 12:53 07/27/24 12:57 Sodium Chloride 0.9% 10ml Syr (Rad Only) IV 07/27/24 12:54 10 ml ONCE ONE Administration ORDERS Category Date Time Status CT angio abdomen pelvis Stat Cat Scan 07/27/24 12:35 Completed XR chest portable Stat Exams 07/27/24 11:23 Completed Complete Blood Count Auto Diff AMLAB Lab 07/28/24 06:00 Ordered Complete Blood Count Auto Diff Stat Lab 07/27/24 11:15 Completed Comprehensive Metabolic Panel AMLAB Lab 07/28/24 06:00 Ordered Comprehensive Metabolic Panel Stat Lab 07/27/24 11:15 Completed HIV Combo Stat Lab 07/27/24 11:15 Completed Hemoglobin A1C Stat Lab 07/27/24 11:19 Completed Hepatitis C Ab Qual. W/ RFX Stat Lab 07/27/24 11:15 Completed Lipase Stat Lab 07/27/24 11:15 Completed Magnesium AMLAB Lab 07/28/24 06:00 Ordered POC Glucose,Bedside Routine Lab 07/27/24 13:03 Completed Troponin I Q3H Lab 07/27/24 14:36 Completed Troponin I Q3H Lab 07/27/24 17:30 Ordered Troponin I Stat Lab 07/27/24 11:15 Completed UA [Urinalysis and Microscopic] Stat Lab 07/27/24 11:58 Completed VBG [Venous Blood Gas] Stat RT 07/27/24 12:25 Completed Medical Decision Narrative: 54-year-old female history of hypertension, diabetes on metformin and Ozempic, nutcracker syndrome, cholecystectomy malrotation and Virgil's band status post surgical correction, presenting with abdominal pain, vomiting. She states that last night, 07/26 she started having a bandlike abdominal pain in her epigastrium. Today, 07/27, was crampy, colicky, severe, epigastric, did not radiate. Intermittently radiating up into her chest and associate with vomiting and retching. No diarrhea. No fevers or chills, shortness of breath, syncope, blood in her stool, urinary symptoms. Took Bentyl and this did not help at all. History was obtained via conversation with patient. On arrival, patient hemodynamically stable, alert, oriented x4, appropriate, GCS 15, moving all extremities spontaneously, pupils equal and reactive to light. Full physical exam performed and significant for thin female in mild distress secondary to vomiting and retching. Abdomen is diffusely tender, but primarily moderately does appear to the tender in the epigastrium. No evidence of peritonitis. Differential includes DKA, ischemic bowel, pancreatitis, gastroparesis, ACS, GA, SBO, among others. Patient placed on continuous cardiac monitoring and continuous pulse ox with initial blood pressure 141/84, heart rate 74, saturation 100% on room air. Independent interpretation of EKG shows sinus rhythm with frequent PVCs. Ventricular rate 75, [place] 126, QRS 85, QTc 385. Normal axis no acute ischemic change. Patient was given fluids and Phenergan for symptomatic management and correction of underlying abnormalities. Patient's glucose elevated greater than 400, patient was given oral potassium as well as IV insulin. Workup independently interpreted and significant for nonactionable CBC. VBG with mild alkalosis, normal CO2, bicarb. Patient's lactate 2.5 likely secondary to VBG samples not be placed on ice prior to transport to lab. Patient appears to have a mild pseudohyponatremia at 134 with glucose of 430 initially, A1c 11.3. Troponin negative, lipase negative, urinalysis with ketones and glucose consistent with mild diabetic ketoacidosis. Anion gap 15.1. On independent interpretation of imaging, patient appears to have fluid-filled bowels consistent with gastroenteritis. See radiology read for full review of final results. Repeat glucose after insulin and fluids to 32. Patient states that she is feeling a lot better, but still nauseated. Pain is largely gone. Conversation had with patient and regarding home-going versus admission, I feel she is appropriate for inpatient admission given first time DKA, elevated A1c 11.3 and need for insulin, which she is not currently on. Needs diabetic education as well. Medicine graciously accepted for admission. Given patient presentation, workup, history, this most likely represents mild DKA, new onset and gastroenteritis. Because patient high risk for clinical decompensation, deemed appropriate for inpatient admission. Results were relayed to patient who voiced understanding and patient was agreeable to inpatient admission and management. Patient was admitted to the hospital for further definitive management. Cuff Folder disclaimer Much of this encounter note is an electronic senior application security consultant spoken language to printed text. Electronic senior application security consultant of the spoken language may permit errors. Although I have reviewed the note, some errors may still exist. Critical Care Critical Care Time Critical Care Time: Yes (endocrine) Attestation: On 07/27/24, the high probability of a clinically significant, sudden or life threatening deterioration of the following system(s) required my full and direct attention, intervention and personal management. The time I documented below is in addition to time spent performing reported procedures but includes the following listed in this critical care notation. Total Time Total Critical Care Time: 35
[2024-07-27] MEDS: LACTATED RINGERS 1000ML 1,000 ML 999 ML IV (13:48)
--- NOTE | 2024-07-27 14:32 | PC.NURSE ---
patient transported to bathroom
--- NOTE | 2024-07-27 14:40 | P.HP_ITS ---
History of Present Illness *Admission Date: 07/27/24 *Reason for visit:: nausea and emesis, abd pain *History of present illness: 54-year-old male with diabetes on oral medication and Ozempic who presents with worsening abdominal pain that comes in waves over the past day or 2. Denies [address] pain or shortness of breath. Has been feeling more fatigued and weak. Denies fever. Last bowel movement yesterday. Workup in the ER concerning for elevated A1c of 11, ketones of 2+ in her urine. Glucose 430 on presentation. Mild electrolyte disturbances with sodium of 132. Presentation concerning for HHS/DKA. CT obtained of the abdomen also shows moderate stool burden. 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 Has struggled with bowel function for long time. Does report regular bowel movements however. Denies significant polyuria or polydipsia. Previously tried Jardiance with increased UTIs. Has been on insulin in the past but gained weight. Medicine consulted for admission of her uncontrolled diabetes and HHS. On admission, patient is hemodynamically stable. Denies chest pain. On room air. Feeling somewhat better with improvement in glucose after receiving 6 units insulin in the ED. Fingerstick showing improvement, 232 on most recent evaluation [facility] Disclaimer: The information contained in this section may have been updated after the patient was seen, as this information can be updated by other users. Medical History Ankle fracture, right Multiple fractures Malrotation of intestine Vaginal pain Tricuspid regurgitation Primary thrombotic microangiopathy Migraine Menorrhagia MDD (major depressive disorder), severe Insomnia Hyperlipidemia Hot flashes Right groin pain Vitamin D deficiency Cardiac murmur Asthma Anemia Nutcracker phenomenon of renal vein Type 2 diabetes mellitus Surgical History History of Hx of cholecystectomy History of appendectomy H/O inguinal hernia repair History of femoral hernia repair History of colonoscopy H/O shoulder surgery Family History Family/Other No significant family history Social History Smoking Status: Never smoker alcohol intake: current alcohol intake frequency: a few times a month substance use type: former substance user and marijuana current occupational status: unemployed Travel in the last 8 weeks: Inside the [place] Have you lived/traveled outside [place] in past 30 days?: No Contact w/someone who lives/traveled outside US past 30 days?: No Exposure to someone with infectious disease in past 14 days?: No Do you have a fever (greater than 100.4 F or 38 C)?: No Have you tested positive for COVID-19: No Exposed to someone with COVID-19 in past 14 days?: No Do you have a sore throat?: No Do you have a cough?: No Do you have any weakness?: No Do you have any diarrhea?: No Are you experiencing any unusual bleeding?: No Do you have any muscle aches/pain?: No Do you have any abdominal pain?: No Are you experiencing loss of taste or smell?: No Other Medical History Have you received the Pneumonia Vaccine: No Review of Systems Review of Systems Review of systems (narrative): 14 point review of systems performed, pertinent positives and negatives as per HPI Meds Home Medications and Allergies Home Medications ?Medication ?Instructions ?Recorded ?Confirmed ?Type [place] Herb Combo See Rx Instructions .Route 07/27/24 07/27/24 History .COMPLEX FEMORAL ARTERY INJ PAIN albuterol sulfate 90 mcg/actuation 2 puff inhalation Q4HP PRN 07/27/24 07/27/24 History aerosol inhaler Shortness Of Breath Or Wheezing calcium carbonate (Calcium 600) 600 mg PO BID 07/27/24 07/27/24 History cetirizine 10 mg tablet (Zyrtec) 10 mg PO NEEDED PRN Allergy 07/27/24 07/27/24 History Symptoms dicyclomine 10 mg capsule 10 mg PO DAILYP PRN Stomach Upset 07/27/24 07/27/24 History ferrous sulfate 325 mg (65 mg 325 mg PO DAILY 07/27/24 07/27/24 History iron) tablet (iron) fluticasone propionate 50 1 spray intranasal NEEDED PRN 07/27/24 07/27/24 History mcg/actuation nasal Allergy Symptoms spray,suspension magnesium glycinate 200 mg PO DAILY 07/27/24 07/27/24 History metformin 500 mg tablet,extended 1,000 mg PO BID 07/27/24 07/27/24 History release 24 hr semaglutide 1 mg/dose (4 mg/3 mL) 1 mg SQ WEEKLY 07/27/24 07/27/24 History subcutaneous pen injector (Ozempic) vitamin D3 25 mcg (1,000 unit)-vit 1 tab PO DAILY 07/27/24 07/27/24 History K2 90 mcg disintegrating tablet New Prescriptions to Start Prescriptions: Allergies Allergy/AdvReac Type Severity Reaction Status Date / Time Sulfa (Sulfonamide Allergy Severe Anaphylaxis Verified 05/25/24 09:01 Antibiotics) dapagliflozin (From [facility]) Allergy Intermediate yeast Verified 05/25/24 09:01 infection empagliflozin (From Allergy Intermediate yeast Verified 05/25/24 09:01 Jardiance) infection Exam Data for Last 24 hours Vital signs and Labs for Last 24 Hours: Temp Pulse Resp BP Pulse Ox O2 Del Method 97.6 F 85 18 137/86 100 Room Air 07/27/24 11:22 07/27/24 14:35 07/27/24 14:35 07/27/24 14:35 07/27/24 14:35 07/27/24 14:35 Laboratory Results - last 24 hr 07/27/24 11:15: WBC 6.7, RBC 5.37, Hgb 14.8, Hct 43.9, MCV 81.8, MCH 27.6, MCHC 33.7, RDW 12.8, Plt Count 231, MPV 11.3 H, Neut % (Auto) 72.4, Lymph % (Auto) 20.2, [place] % (Auto) 6.1, Eos % (Auto) 0.3, Baso % (Auto) 0.7, Neut # (Auto) 4.9, Lymph # (Auto) 1.4, [place] # (Auto) 0.4, Eos # (Auto) 0.0, Baso # (Auto) 0.1, Sodium 134 L, Potassium 4.1, Chloride 97 L, Carbon Dioxide 26, Anion Gap 15.1 H, BUN 7, Creatinine 0.40 L, Estimated Creat Clear 143, Estimated GFR 167, Est GFR ( Amer) 202, Glucose 430 H*, Calcium 9.6, Total Bilirubin 1.1, AST 189 H, ALT 61, Alkaline Phosphatase 134 H, Troponin I < 0.01, Total Protein 7.9, Albumin 5.0, Globulin 2.9, Albumin/Globulin Ratio 1.7, Lipase 63, HCV Ab DANIELA w/Rflx PCR Qn Negative, HIV Ag/Ab Combo Qual Negative 07/27/24 11:19: Hemoglobin A1c 11.3 H 07/27/24 11:58: Urine Color Yellow, Urine Appearance Clear, Urine pH 7.5, Ur Specific [place] 1.015, Urine Protein Negative, Urine Glucose (UA) 3+, Urine Ketones 2+, Urine Blood Negative, Urine Nitrate Negative, Urine Bilirubin Negative, Urine Urobilinogen 0.2, Ur Leukocyte Esterase Negative, Urine RBC None, Urine WBC None, Ur Squamous Epith Cells None, Urine Bacteria None 07/27/24 12:25: VBG pH 7.42 H, VBG pCO2 38.1, VBG pO2 36.2, VBG HCO3 23.9, VBG Total CO2 25.1, VBG O2 Saturation 70.4 H, VBG Base Excess -0.7, VBG Lactic Acid 2.5 H 07/27/24 13:03: POC Glucose 232 H I & O for Last 24 hours: Intake & Output 07/24/24 07/25/24 07/26/24 07/27/24 23:59 23:59 23:59 23:59 Weight 55.792 kg Constitutional Constitutional: no acute distress, average body habitus and cooperative *Routine HEENT Exam Head: Present normocephalic Eye: Present EOMI and PERRL ENT: Present mucous membranes moist *Routine Neck Exam Neck: Present supple; Absent lymphadenopathy *Routine Respiratory Exam Respiratory: Present CTA bilaterally; Absent rhonchi, wheezes or crackles *Routine Cardiovascular Exam Cardiovascular: Present RRR *Routine Abdominal Exam Abdominal: Present soft, normoactive bowel sounds and tenderness (Worse in epigastric region); Absent distended or rebound *Routine Rectal Exam Rectal:: deferred *Routine Genitalia Exam Genitalia:: deferred *Routine Extremities Exam Extremities: Absent cyanosis, clubbing or edema *Routine Skin Exam Skin: Present intact and warm; Absent rash *Routine Neurological Exam Neurological: Present alert, oriented X3 and moving all extremities; Absent altered mental status Assessment and Plan *Assessment and plan (1) Uncontrolled diabetes mellitus: Status: Acute Category: Medical (2) Hyperosmolar hyperglycemic state (HHS): Status: Acute Category: Medical Code(s): E11.00 - Type 2 diabetes mellitus with hyperosmolarity without nonketotic hyperglycemic-hyperosmolar coma (NKHHC) (3) Constipation: Status: Acute Category: Medical Code(s): K59.00 - Constipation, unspecified (4) Nutcracker phenomenon of renal vein: Status: Acute Category: Medical Code(s): I87.1 - Compression of vein (5) Hyperlipidemia: Problem Comment: 2009 Status: Acute Category: Medical Code(s): E78.5 - Hyperlipidemia, unspecified (6) Malrotation of intestine: Problem Comment: non congenital- Malrotation of intestines s/p open abdominal surgery w/ incidental appendectomy Status: Acute Category: Medical Code(s): Q43.3 - Congenital malformations of intestinal fixation (7) MDD (major depressive disorder), severe: Status: Acute Category: Medical Code(s): F32.2 - Major depressive disorder, single episode, severe without psychotic features Plan 54-year-old female who presents with abdominal pain, found to have severely elevated glucose with ketones in her urine. Concern for HHS. Discussed case with ER physician, request admission for adjustment to diabetes regimen and improvement in glucose control along with management of abdominal pain. Medicine agreed to admit for further care. Received 6 units insulin in the ED, has had good response. Will initiate on diet and administer 1 L of fluids. Monitor overnight with initiation of low-dose insulin. Problems addressed as follows: HHS Uncontrolled diabetes - Currently on Ozempic and metformin at home. A1c of 11. Glucose 430 on presentation. 2+ ketones in urine. pH 7.4 on VBG - Continue metformin 1000 mg twice daily. Initiate Januvia 50 mg in the morning. Initiate insulin glargine 5 units tonight. Monitor for morning glucose and improvement with glucose less than 200. Anticipate discharge tomorrow with referral to endocrinology for further management - Diabetic diet - 1 L LR for mild dehydration and constipation - Recommend discontinuing semaglutide to abdomen - Creatinine 0.4, BUN 7. Potassium 4.1. Anion gap 15. Repeat CBC, CMP, magnesium ordered for the morning Constipation: Seen on CT per my review. Has moderate stool burden. Says she had a bowel movement yesterday. If no bowel movement overnight, will consider dose of MiraLAX in the morning Continue home calcium daily and magnesium 200 mg daily. Full code Patient ambulatory and mobile, Tyler score of 0; no indication for anticoagulation diabetic diet
--- NOTE | 2024-07-27 14:42 | PC.NURSE ---
notified house of admission.
[2024-07-27] MEDS: METOCLOPRAMIDE HCL 10MG/2ML VIAL 10 MG IVP (14:51)
[2024-07-27] MEDS: FAMOTIDINE 20MG/2ML VIAL 20 MG IV (14:51)
[2024-07-27] MEDS: KETOROLAC 30MG/ML VIAL 15 MG IV (14:51)
--- NOTE | 2024-07-27 14:54 | HMH.PHAINT1 ---
Pharmacy Intervention Comments: MEDICATION RECONCILIATION COMPLETED ON PATIENT USING EXTERNAL FILL HISTORY FROM PHARMACY. -SONALI INMAN, MÓNICAD
[2024-07-27 15:04] LABS: Troponin I < 0.01 ng/ml (0.00-0.034)
[2024-07-27 16:30] LABS: Reflex Lactic Add Lactic Reflex
[2024-07-27] MEDS: LACTATED RINGERS 1000ML 1,000 ML 125 ML IV (16:37)
--- NOTE | 2024-07-27 17:38 | PC.NURSE ---
Patient is a new admit from the ER. A&Ox4. Vital signs stable tolerating room air. IV fluids infusing per JUN. Glucose upon arrival to the floor was 123. Pt reports no abdominal pain or nausea at this time. Pt resting supine in bed at this time. No further needs voiced at this time. Call light within reach.
[2024-07-27 18:23] LABS: Lactic Acid Follow Up (RFLX 1) 0.8 mmol/L (0.7-2.1)
[2024-07-27 18:41] LABS: Troponin I < 0.01 ng/ml (0.00-0.034)
[2024-07-27 19:54] LABS: POC Glucose,Bedside 123 (70-110)
[2024-07-27 19:54] LABS: POC Glucose,Bedside 114 (70-110)
[2024-07-27] MEDS: PATIENT'S OWN HOME MEDICATION (Metformin 500 mg tablet extended release 24 hr) 1000 EACH PO (20:28)
[2024-07-27] MEDS: INSULIN GLARGINE 100 UNITS/ML 3ML FLEXPEN 5 UNIT SUBCUT (20:29)
--- NOTE | 2024-07-28 03:22 | PC.NURSE ---
patient has rested well this shift, alert and oriented x4, ambulates in room independently, no complaints of pain this shift, FSBS 114, call button is in reach
[2024-07-28 03:47] VITALS: BP 110/61; PULSE 74; RESP 16; TEMP 36.5; O2SAT 97; BMI 21.1
[2024-07-28 06:13] LABS: POC Glucose,Bedside 122 (70-110)
[2024-07-28] MEDS: SITAGLIPTIN 50MG TABLET 50 MG PO (06:20)
[2024-07-28 06:23] LABS: Albumin Level 3.3 g/dl (3.5-5.0); Chloride 106 mmol/L (98-107); Potassium 3.9 mmoL/L (3.5-5.1); Sodium 138 mmol/L (136-145)
[2024-07-28 06:26] LABS: Alanine Aminotransferase 586 U/L (12-78); Albumin/Globulin Ratio 1.4 (1.1-1.8); Alkaline Phosphatase 133 U/L (38-126); Anion Gap 6.9 mEq/L (5-15); Bilirubin,Total 1.4 mg/dl (0.2-1.3); Blood Urea Nitrogen 6 mg/dl (7-17); Calcium 8.4 mg/dl (8.4-10.2); Carbon Dioxide 29 mmol/L (22.0-30.0); Creatinine Clearance Estimated 148 mL/min (50-200); Estimated Glomerular Filt Rate 167 ml/min (>60); GFR (African American) 202 ML/MIN (>60); Globulin 2.4 g/dL (1.3-3.2); Glucose 115 mg/dl (74-100); Total Protein,Serum 5.7 g/dl (6.3-8.2)
[2024-07-28 06:27] LABS: Magnesium 1.6 mg/dl (1.6-2.3)
[2024-07-28 06:29] LABS: Basophils % 1.1 % (0.1-2.0); Eosinophils % 1.1 % (0.1-12.0); Hematocrit 35.3 % (37.0-47.0); Lymphocytes # 1.1 K/mm3 (0.7-4.5); Mean Corpuscular HGB Conc 33.1 g/dL (31.8-35.4); Mean Corpuscular Hemoglobin 27.7 pg (27.0-31.2); Mean Corpuscular Volume 83.6 fl (81-99); Mean Platelet Volume 11.9 fl (7.4-10.4); Monocytes # 0.2 K/mm3 (0.1-1.0); Monocytes % 5.7 % (1.7-9.3); Neutrophils # 1.3 K/mm3 (1.8-7.8); Neutrophils % 50.7 % (37.0-80.0); Nucleated Red Blood Cells # 0 10^3/uL; Nucleated Red Blood Cells % 0 %; Platelet Count 148 K/mm3 (142-424); Red Blood Count 4.22 M/mm3 (4.20-5.40); Red Cell Distribution Width 12.9 % (11.5-17.5); Red Cell Distribution Width-SD 39.4 fL; White Blood Count 2.6 K/mm3 (4.8-10.8)
[2024-07-28 06:37] LABS: Aspartate Amino Transferase 937 U/L (14-36)
[2024-07-28 07:08] LABS: Hemoglobin 11.6 g/dL (12.2-16.2)
--- NOTE | 2024-07-28 07:43 | US_ITS ---
FINAL REPORT CLINICAL HISTORY: Transaminitis COMPARISON: None FINDINGS: Sonographic images of the right upper quadrant were obtained. The pancreas is unremarkable. There is fatty infiltration of the liver. The gallbladder is surgically absent. There is no evidence of biliary ductal dilatation.The common duct measures up to 7 mm in diameter, which is probably related to prior cholecystectomy. No choledocholithiasis is identified. Limited images of the right kidney are unremarkable. IMPRESSION: Cholecystectomy without evidence of choledocholithiasis. Fatty liver. Reviewed, Interpreted and Dictated by Mc Rod MD Transcribed by Kassidy Jaramillo Authenticated and [facility]
[2024-07-28 08:00] VITALS: BP 125/66; PULSE 70; RESP 16; TEMP 36.5; O2SAT 97
[2024-07-28 08:00] LABS: Lipase 37 U/L (23-300)
[2024-07-28] MEDS: METFORMIN 500MG TABLET 1000 MG PO (08:23)
--- NOTE | 2024-07-28 08:36 | PC.NURSE ---
Pt left floor for US ABD
[2024-07-28] MEDS: FUROSEMIDE 40MG/4ML VIAL 40 MG IV (11:14)
[2024-07-28] MEDS: humaLOG 100 UNITS/ML 10ML VIAL (SSI) SUBCUT ×2 (11:26→16:36)
[2024-07-28 11:28] LABS: POC Glucose,Bedside 168 (70-110)
[2024-07-28 13:09] VITALS: BMI 21.1
[2024-07-28 15:58] LABS: Chloride 100 mmol/L (98-107)
[2024-07-28 15:59] LABS: Albumin Level 3.8 g/dl (3.5-5.0); Potassium 3.6 mmoL/L (3.5-5.1); Sodium 136 mmol/L (136-145)
[2024-07-28 16:00] VITALS: BP 121/56; PULSE 78; RESP 16; TEMP 36.6; O2SAT 99
[2024-07-28 16:01] LABS: Blood Urea Nitrogen 6 mg/dl (7-17); Creatinine Clearance Estimated 118 mL/min (50-200); Estimated Glomerular Filt Rate 129 ml/min (>60); GFR (African American) 156 ML/MIN (>60)
[2024-07-28 16:02] LABS: Alanine Aminotransferase 535 U/L (12-78); Albumin/Globulin Ratio 1.5 (1.1-1.8); Alkaline Phosphatase 155 U/L (38-126); Anion Gap 9.6 mEq/L (5-15); Aspartate Amino Transferase 591 U/L (14-36); Bilirubin,Total 1.1 mg/dl (0.2-1.3); Calcium 8.7 mg/dl (8.4-10.2); Carbon Dioxide 30 mmol/L (22.0-30.0); Globulin 2.5 g/dL (1.3-3.2); Glucose 223 mg/dl (74-100); Total Protein,Serum 6.3 g/dl (6.3-8.2)
--- NOTE | 2024-07-28 16:14 | PC.NURSE ---
Pt A&O x4. She is currently resting in bed. States Abdominal pain has improved. Electrolyte replacement protocol in place. Magnesium is currently infusing. VSS. Call light within reach. Family member at bedside.
[2024-07-28 16:38] LABS: POC Glucose,Bedside 183 (70-110)
--- NOTE | 2024-07-28 16:48 | P.DS_ITS ---
General Admission date:: 07/27/24 Discharge date: 07/28/24 HPI HPI HPI: 54-year-old male with diabetes on oral medication and Ozempic who presents with worsening abdominal pain that comes in waves over the past day or 2. Denies chest pain or shortness of breath. Has been feeling more fatigued and weak. Denies fever. Last bowel movement yesterday. Workup in the ER concerning for elevated A1c of 11, ketones of 2+ in her urine. Glucose 430 on presentation. Mild electrolyte disturbances with sodium of 132. Presentation concerning for HHS/DKA. CT obtained of the abdomen also shows moderate stool burden. 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 Has struggled with bowel function for long time. Does report regular bowel movements however. Denies significant polyuria or polydipsia. Previously tried Jardiance with increased UTIs. Has been on insulin in the past but gained weight. Medicine consulted for admission of her uncontrolled diabetes and HHS. On admission, patient is hemodynamically stable. Denies chest pain. On room air. Feeling somewhat better with improvement in glucose after receiving 6 units insulin in the ED. Fingerstick showing improvement, 232 on most recent evaluation Hospital Course Hospital Course Hospital Course: 54-year-old female who presents with abdominal pain, found to have severely elevated glucose with ketones in her urine. Concern for HHS. Discussed case with ER physician, request admission for adjustment to diabetes regimen and improvement in glucose control along with management of abdominal pain. Medicine agreed to admit for further care. Received 6 units insulin in the ED, has had good response. Will initiate on diet and administer 1 L of fluids. Patient was monitored overnight. Glucose better controlled. Liver enzymes however elevated the following morning. Showing trend of improvement, with shared decision making we will discharge home with repeat labs in the next day or 2. Stable at this time. Problems addressed as follows: HHS Uncontrolled diabetes Transaminitis - Currently on Ozempic and metformin at home. A1c of 11. Glucose 430 on presentation. 2+ ketones in urine. pH 7.4 on VBG. Patient initiated on insulin. Received 6 units insulin in the ED. Started insulin glargine 5 units at night. Morning glucose better controlled at 115. Unfortunately her liver enzymes elevated with bilirubin 1.4, AST 937, ALT 586. Unclear the specific etiology but at this time suspect liver injury due to supplements such as her Libyan herbs, metformin, large-volume fluid resuscitation, Tylenol from [id number] medications. Has no jaundice on exam. Repeat labs in the afternoon showing improvement with AST and ALT both in the 500 range. After much discussion, will discharge home with close follow-up and repeat labs in the next day or 2. Recommend holding Ozempic due to her abdominal pain and weight loss and BMI of 21. Recommend holding metformin in the acute phase with her elevation in liver enzymes. Will initiate Januvia 50 mg daily. Continue insulin glargine 5 units nightly. Counseled on titration regimen of increasing by 2 units every 3 days for morning glucoses above 150. Close follow-up with PCP for further recommendations. Would benefit from referral to endocrinology for further management. - Ultrasound of abdomen obtained showing common bile duct of 7 mm, no intrahepatic biliary dilatation. Had some fatty liver disease. Otherwise unremarkable ultrasound Constipation: Seen on CT per my review. Has moderate stool burden. Having bowel movements during admission however. Improved with increased fluid intake and fluid resuscitation. No indication for stool softener. Continue home calcium daily and magnesium 200 mg daily. Total time spent on discharge 32 minutes in counseling, documentation, chart review, and direct care with patient. Exam Data for Last 24 hours Vital signs and Labs for Last 24 Hours: Temp Pulse Resp BP Pulse Ox O2 Del Method 98 F 78 16 121/56 L 99 Room Air 07/28/24 16:00 07/28/24 16:00 07/28/24 16:00 07/28/24 16:00 07/28/24 16:00 07/28/24 16:00 Laboratory Results - last 24 hr 07/27/24 16:23: POC Glucose 123 H 07/27/24 17:55: Lactate 0.8, Troponin I < 0.01 07/27/24 19:45: POC Glucose 114 H 07/28/24 05:11: WBC 2.6 L D, RBC 4.22, Hgb 11.6 L D, Hct 35.3 L, MCV 83.6, MCH 27.7, MCHC 33.1, RDW 12.9, Plt Count 148 D, MPV 11.9 H, Neut % (Auto) 50.7, Lymph % (Auto) 41.0, [place] % (Auto) 5.7, Eos % (Auto) 1.1, Baso % (Auto) 1.1, Neut # (Auto) 1.3 L, Lymph # (Auto) 1.1, [place] # (Auto) 0.2, Eos # (Auto) 0.0, Baso # (Auto) 0.0, Sodium 138, Potassium 3.9, Chloride 106, Carbon Dioxide 29, Anion Gap 6.9, BUN 6 L, Creatinine 0.40 L, Estimated Creat Clear 148, Estimated GFR 167, Est GFR ( Amer) 202, Glucose 115 H D, Calcium 8.4, Magnesium 1.6, Total Bilirubin 1.4 H, AST 937 H* D, ALT 586 H*, Alkaline Phosphatase 133 H , Total Protein 5.7 L D, Albumin 3.3 L D, Globulin 2.4, Albumin/Globulin Ratio 1.4, Lipase 37 07/28/24 05:20: POC Glucose 122 H 07/28/24 11:19: POC Glucose 168 H 07/28/24 15:44: Sodium 136, Potassium 3.6, Chloride 100, Carbon Dioxide 30, Anion Gap 9.6, BUN 6 L, Creatinine 0.50 L D, Estimated Creat Clear 118, Estimated GFR 129, Est GFR ( Amer) 156 D, Glucose 223 H D, Calcium 8.7, Total Bilirubin 1.1, AST 591 H* D, ALT 535 H*, Alkaline Phosphatase 155 H, Total Protein 6.3, Albumin 3.8 D, Globulin 2.5, Albumin/Globulin Ratio 1.5 07/28/24 16:31: POC Glucose 183 H I & O for Last 24 hours: Intake & Output 07/25/24 07/26/24 07/27/24 07/28/24 23:59 23:59 23:59 23:59 Intake Total 360 / 1600 1480 / 1480 Output Total 0 / 0 0 / 0 Balance 360 / 1600 1480 / 1480 Weight 55.792 kg 57.47 kg Constitutional Constitutional: no acute distress, thin and cooperative *Routine HEENT Exam Head: Present normocephalic Eye: Present EOMI and PERRL ENT: Present mucous membranes moist *Routine Neck Exam Neck: Present supple; Absent lymphadenopathy *Routine Respiratory Exam Respiratory: Present CTA bilaterally *Routine Cardiovascular Exam Cardiovascular: Present RRR *Routine Abdominal Exam Abdominal: Present soft, normoactive bowel sounds and tenderness (epigastric); Absent distended or rebound *Routine Rectal Exam Patient deferred: visual exam *Routine Exam Patient deferred: external exam *Routine Extremities Exam Extremities: Absent cyanosis, clubbing or edema *Routine Skin Exam Skin: Present warm; Absent rash *Routine Neurological Exam Neurological: Present alert, oriented X3 and moving all extremities; Absent altered mental status Results Data Completed and Pending Labs on day of discharge: Labs from last 24 hours 07/28/24 07/28/24 07/28/24 16:31 15:44 11:19 WBC RBC Hgb Hct MCV MCH MCHC RDW Plt Count MPV Neut % (Auto) Lymph % (Auto) [place] % (Auto) Eos % (Auto) Baso % (Auto) Neut # (Auto) Lymph # (Auto) [place] # (Auto) Eos # (Auto) Baso # (Auto) Sodium 136 Potassium 3.6 Chloride 100 Carbon Dioxide 30 Anion Gap 9.6 BUN 6 L Creatinine 0.50 L D Estimated Creat Clear 118 Estimated GFR 129 Est GFR ( Amer) 156 D Glucose 223 H D POC Glucose 183 H 168 H Lactate Calcium 8.7 Magnesium Total Bilirubin 1.1 AST 591 H* D ALT 535 H* Alkaline Phosphatase 155 H Troponin I Total Protein 6.3 Albumin 3.8 D Globulin 2.5 Albumin/Globulin Ratio 1.5 Lipase 07/28/24 07/28/24 07/27/24 05:20 05:11 19:45 WBC 2.6 L D RBC 4.22 Hgb 11.6 L D Hct 35.3 L MCV 83.6 MCH 27.7 MCHC 33.1 RDW 12.9 Plt Count 148 D MPV 11.9 H Neut % (Auto) 50.7 Lymph % (Auto) 41.0 [place] % (Auto) 5.7 Eos % (Auto) 1.1 Baso % (Auto) 1.1 Neut # (Auto) 1.3 L Lymph # (Auto) 1.1 [place] # (Auto) 0.2 Eos # (Auto) 0.0 Baso # (Auto) 0.0 Sodium 138 Potassium 3.9 Chloride 106 Carbon Dioxide 29 Anion Gap 6.9 BUN 6 L Creatinine 0.40 L Estimated Creat Clear 148 Estimated GFR 167 Est GFR ( Amer) 202 Glucose 115 H D POC Glucose 122 H 114 H Lactate Calcium 8.4 Magnesium 1.6 Total Bilirubin 1.4 H AST 937 H* D ALT 586 H* Alkaline Phosphatase 133 H Troponin I Total Protein 5.7 L D Albumin 3.3 L D Globulin 2.4 Albumin/Globulin Ratio 1.4 Lipase 37 07/27/24 07/27/24 17:55 16:23 WBC RBC Hgb Hct MCV MCH MCHC RDW Plt Count MPV Neut % (Auto) Lymph % (Auto) [place] % (Auto) Eos % (Auto) Baso % (Auto) Neut # (Auto) Lymph # (Auto) [place] # (Auto) Eos # (Auto) Baso # (Auto) Sodium Potassium Chloride Carbon Dioxide Anion Gap BUN Creatinine Estimated Creat Clear Estimated GFR Est GFR ( Amer) Glucose POC Glucose 123 H Lactate 0.8 Calcium Magnesium Total Bilirubin AST ALT Alkaline Phosphatase Troponin I < 0.01 Total Protein Albumin Globulin Albumin/Globulin Ratio Lipase DS: Diagnosis Discharge Diagnosis (1) Uncontrolled diabetes mellitus: Status: Acute (2) Hyperosmolar hyperglycemic state (HHS): Status: Acute Code(s): E11.00 - Type 2 diabetes mellitus with hyperosmolarity without nonketotic hyperglycemic-hyperosmolar coma (NKHHC) (3) Constipation: Status: Acute Code(s): K59.00 - Constipation, unspecified (4) Nutcracker phenomenon of renal vein: Status: Acute Code(s): I87.1 - Compression of vein (5) Hyperlipidemia: Status: Acute Code(s): E78.5 - Hyperlipidemia, unspecified Problem details: 2009 (6) Malrotation of intestine: Status: Acute Code(s): Q43.3 - Congenital malformations of intestinal fixation Problem details: non congenital- Malrotation of intestines s/p open abdominal surgery w/ incidental appendectomy (7) MDD (major depressive disorder), severe: Status: Acute Code(s): F32.2 - Major depressive disorder, single episode, severe without psychotic features (8) Transaminitis: Status: Acute Code(s): R74.01 - Elevation of levels of liver transaminase levels Meds Home Medications and Allergies Home Medications ?Medication ?Instructions ?Recorded ?Confirmed ?Type Lib[place] Herb Combo See Rx Instructions .Route 07/27/24 07/27/24 History .COMPLEX FEMORAL ARTERY INJ PAIN albuterol sulfate 90 mcg/actuation 2 puff inhalation Q4HP PRN 07/27/24 07/27/24 History aerosol inhaler Shortness Of Breath Or Wheezing calcium carbonate (Calcium 600) 600 mg PO BID 07/27/24 07/27/24 History cetirizine 10 mg tablet (Zyrtec) 10 mg PO NEEDED PRN Allergy 07/27/24 07/27/24 History Symptoms dicyclomine 10 mg capsule 10 mg PO DAILYP PRN Stomach Upset 07/27/24 07/27/24 History ferrous sulfate 325 mg (65 mg 325 mg PO DAILY 07/27/24 07/27/24 History iron) tablet (iron) fluticasone propionate 50 1 spray intranasal NEEDED PRN 07/27/24 07/27/24 History mcg/actuation nasal Allergy Symptoms spray,suspension magnesium glycinate 200 mg PO DAILY 07/27/24 07/27/24 History metformin 500 mg tablet,extended 1,000 mg PO BID 07/27/24 07/27/24 History release 24 hr vitamin D3 25 mcg (1,000 unit)-vit 1 tab PO DAILY 07/27/24 07/27/24 History K2 90 mcg disintegrating tablet insulin glargine 100 unit/mL (3 5 unit (0.05 mL) SQ HS #15 mL 07/28/24 Rx mL) subcutaneous pen (Lantus Solostar U-100 Insulin) pen needle, diabetic 31 gauge x #100 ea 07/28/24 Rx 1/4 sitagliptin phosphate 50 mg tablet 50 mg PO DAILYDM 30 days #30 tabs 07/28/24 Rx (Januvia) New Prescriptions to Start Prescriptions: insulin glargine [Lantus Solostar U-100 Insulin] Abhijit Rodrigues pen needle, diabetic Abhijit Rodrigues sitagliptin phosphate [Januvia] Abhijit Rodrigues Allergies Allergy/AdvReac Type Severity Reaction Status Date / Time Sulfa (Sulfonamide Allergy Severe Anaphylaxis Verified 05/25/24 09:01 Antibiotics) dapagliflozin (From Farxiga) Allergy Intermediate yeast Verified 05/25/24 09:01 infection empagliflozin (From Allergy Intermediate yeast Verified 05/25/24 09:01 Jardiance) infection Discharge Plan Disposition Patient Disposition: Home, Self-Care Condition: Good Follow up Plan Follow up with: Melinda Moeller APRN [Primary Care Provider] - 07/31/24 9:00 am Prescriptions/Medication Reconciliation: New insulin glargine [Lantus Solostar U-100 Insulin] 100 unit/mL (3 mL) Insulin Pen 5 unit SQ HS Qty: 15 0RF Januvia 50 mg Tablet 50 mg PO DAILYDM 30 Days Qty: 30 0RF (DME) pen needle, diabetic 31 gauge x 1/4 needle See Rx Instructions .ROUTE .MEDSUPPLY Qty: 100 0RF Rx Instructions: once a day at night with lantus Continued albuterol sulfate 90 mcg/actuation HFA aerosol inhaler 2 puff INHALATION Q4HP PRN (Reason: Shortness Of Breath Or Wheezing) Patient Comments: INHALE 2 PUFFS BY MOUTH EVERY 4 TO 6 HOURS NEEDED FOR SHORTNESS OF BREATH OR WHEEZING calcium carbonate [Calcium 600] 600 mg calcium (1,500 mg) Tablet 600 mg PO BID dicyclomine 10 mg Capsule 10 mg PO DAILYP PRN (Reason: Stomach Upset) vitamin D3-vitamin K2 25 mcg (1,000 unit)-90 mcg Tablet,Disintegrating 1 tab PO DAILY ferrous sulfate [iron] 325 mg (65 mg iron) Tablet 325 mg PO DAILY magnesium glycinate 100 mg magnesium Capsule 200 mg PO DAILY cetirizine [Zyrtec] 10 mg Tablet 10 mg PO NEEDED PRN (Reason: Allergy Symptoms) fluticasone propionate 50 mcg/actuation [place],Suspension 1 spray INTRANASAL NEEDED PRN (Reason: Allergy Symptoms) Held metformin 500 mg tablet extended release 24 hr 1,000 mg PO BID Hold Instructions: Pending improvement in liver enzymes Patient Comments: TAKE 2 TABLETS BY MOUTH 2 TIMES DAILY Libyan Herb Combo 1 EACH See Rx Instructions .ROUTE .COMPLEX Hold Instructions: Pending improvement in liver enzymes Rx Instructions: CONTAINS: LEANDRO GONZALEZO HORACIO JORGEMark NESS MARYLIN DOMINICK [place] Discontinued Ozempic 1 mg/dose (4 mg/3 mL) pen injector 1 mg SQ WEEKLY Problem Reconciliation Problems Reviewed?: Yes Patient Discharge Instructions ACTIVITY: Continue current activity DIET: continue same diet Patient Instructions: Diabetes Insipidus, Carbohydrate-Counting Diet, DI for Diabetic Ketoacidosis, Using Nutrition Labels: Carbohydrate Diet Print Language: [place] Tim[place]se Providers Primary Care Provider: Melinda Meoller Admit Provider: Abhijit Rodrigues Attending Provider: Abhijit Rodrigues
--- NOTE | 2024-07-31 14:46 | SW/DCPLANNER ---
Patient stated that she is doing well. Patient stated that she is aware of her appointment and was there today. Patient stated that our warehouse delivery manager called and stated that she needs to stop all her medicine because they have questions. Patient stated that she has no concerns or questions. Jose Webster
== END 2024-07-28 17:24 | disposition home or self-care (01) ==
LOC: ER 15:12 → 2ND 15:27
PROVIDERS: Admitting Provider Internal Medicine Adolescent Medicine; Emergency Provider Emergency Medicine; PCP Nurse Practitioner Family; Visit Provider Internal Medicine Adolescent Medicine
DX: E11.00 Type 2 diabetes mellitus with hyperosmolarity without nonketotic hyperglycemic-hyperosmolar coma (NKHHC) (principal); R10.84 Generalized abdominal pain; R63.4 Abnormal weight loss; Q27.34 Arteriovenous malformation of renal vessel; E78.5 Hyperlipidemia, unspecified; Q43.3 Congenital malformations of intestinal fixation; R74.01 Elevation of levels of liver transaminase levels; E11.65 Type 2 diabetes mellitus with hyperglycemia; K59.00 Constipation, unspecified; Z88.2 Allergy status to sulfonamides; Z88.8 Allergy status to other drugs, medicaments and biological substances; Z79.899 Other long term (current) drug therapy; Z79.51 Long term (current) use of inhaled steroids; Z79.85 Long-term (current) use of injectable non-insulin antidiabetic drugs; Z79.84 Long term (current) use of oral hypoglycemic drugs; Z90.49 Acquired absence of other specified parts of digestive tract; Z79.4 Long term (current) use of insulin; Z68.21 Body mass index [BMI] 21.0-21.9, adult; Z98.890 Other specified postprocedural states
CPT/HCPCS: 36415; 71045; 74174; 76705; 80053; 81001; 82803; 82962; 83036; 83605; 83690; 83735; 84484; 85025; 86803; 87389; 93005; 99291; G0378; J1885; J1938; J2550; J2765; J7030; J7120; Q9967; S0028

== ENCOUNTER 2024-07-29 14:48 | Outpatient (CLI) | payer BC, SELFPAY ==
--- OUTSIDE RECORDS SUMMARY | 2024-07-29 14:51 | XMS_ITS | Data Portability ---
Author Organization [place] - [facility] SHRADDHA Berrios ADMIN Address [address] [place] [id number] Care Team Providers Care Reclamation Engineer Name Role Phone NAFANY Primary Care Provider [...] urinal ysis, reflex cultur e 2023 024 [email or web address] [facility] (Lab), [address], [place], [address], 4 15:30:48 Referral None record ed. Procedures None record ed. Surgeries None record ed. Imaging CT, angiog alvin, abdome n + pelvis , w/wo contra st 2023 024 [email or web address] [facility] (Scheduling), [address], [place], [id number], 4 14:33:28 Medication Orders dicycl omine 20 mg tablet 2023 024 [id number], [address] [facility] [address] [place], [id number], 4 14:24:09 Patient TargetsNo targets recorded. Patient InstructionsNo instructions recorded. Reason for Referral None Reported. Results Created Date Observation Date Name Description Value Unit Range Abnormal Flag Note LastModifiedBy Organization Detail LastModifiedTime 12/30/19 24 12/29/2023 CT, abdom en + pelvi s, w/wo contr ast No observ ation record ed. [facility] (Scheduling) [address], [place], [id number], 02/17/2024 09:20:30 Result Notes None recorded. Procedures Surgical History None recorded. Imaging Results Imaging Date Name Status LastModified by Organiz ation Details LastModified Time 12/29/2023 CT, abdomen + pelvis, w/wo contrast completed [facility] (Scheduling) [address], [place], [id number], 02/17/2024 09:20:30 Procedure Notes None recorded. Medical Equipment None Reported. Allergies Allergen ID Allergen Name Allergen Category Reaction Reaction Severity Criticality Documentation Date Start Date Code Code System Note Provider Name and Address Organization Details Recorded Time 069912 Substance with sulfonami de structure and antibacte rial mechanism of action (substanc e) medicatio n anaphylax is severe Not available 12/01/2023 69601 8003 SNOMED Angelica Salinas [facility], [place] - [facility] & [place] 4 13:18:47 Medications Name Sig [...] Address Organization Details Last Updated DateTime 4 78526.5 1 g 21.1 kg/m2 165.1 cm 98.1 [degF] 100 % 100 % 84 /min 86 /min 130 mm[Hg] 73 mm[Hg] Angelica GALLO - LPNT [facility] & [place] 13:18:25 Social History Question Answer Notes LastModified by Organizat ion Details LastModified Time Tobacco Smoking Status Never Smoker Angelica keenan, [place] [facility] [place] 12/01/2023 13:21:03 What Is Your Level Of Alcohol Consumption? Occasional [email or web address] Information not available 12/01/2023 What Is Your Level Of Caffeine Consumption? 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 No [email or web address] Information not available 12/01/2023 Do You Or Have You Ever Used Any Other Forms Of Tobacco Or Nicotine? No [email or web address] Information not available 12/01/2023 Sex: Unknown Functional Status None recorded. Mental Status None recorded. Family History Nothing Reported. Medical History No medical history recorded. Gynecological HistoryNo gynecological history recorded. Obstetrics History GPAL:G 0 P 0 0 0 0 Past Encounters Encounter ID Performer Location Encounter Start Date Encounter Closed Date Diagnosis/Indication Diagnosis SNOMED-CT Code Diagnosis ICD10 Code Diagnosis Note [id number] ZARA VEE NP [facility] [address] [id number] 12/01/2023 13:00:49 12/01/2023 14:26:15 Abdominal pain 92160499 R10.9 Left flank pain 39021007 9 R10.9 Type 2 cole betes mellitus 39720071 E11.9 Left renal vein entrapment syndrome 787066940 I87.1 Diarrhea 23824933 R19.7 Nausea 319928235 R11.0 Delayed ga stric emptying 769575465 K30 Health Concerns Section Related Observation LastModified by Organization Detai ls LastModified Time None Recorded Concern Status LastModified by Organization Details LastModified Time None Recorded Advance Directives Directive None Recorded Payers Encounter Date Sequence Insurance Name Policy Number Policy Adams Covered Member ID Adams Member ID Guarantor Name 12/01/2023 1 [place] [employer] ([place]) [id number] Corina Rodgers [id number] Corina Rodgers Notes Date Note Type Note Provider Name and Address Organization Details Recorded Time 12/01/2023 text/html is a 53-year-old patient with Type 2 diabetes, 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 She recently relocated from [place] where she received all her previous care. She reports in 2003 she had a volvulus which required 3 procedures to correct. She has had left flank pain and lower abdominal cramping for years. She saw a vascular surgeon in [place] which told her symptoms were likely due [...] or dark, tarry bowel movements. ZARA VEE, BOARD ATTENDANT [address], [place], [address], [facility] - [place] - [place] & [place] 12/06/2023 14:39:09 OBGyn Episode No OBEpisode recorded.
[2024-07-29 16:25] LABS: Chloride 97 mmol/L (98-107); Potassium 4.4 mmoL/L (3.5-5.1); Sodium 133 mmol/L (136-145)
[2024-07-29 16:28] LABS: Alanine Aminotransferase 362 U/L (12-78); Albumin/Globulin Ratio 1.7 (1.1-1.8); Alkaline Phosphatase 154 U/L (38-126); Anion Gap 11.4 mEq/L (5-15); Aspartate Amino Transferase 200 U/L (14-36); Bilirubin,Total 0.9 mg/dl (0.2-1.3); Blood Urea Nitrogen 13 mg/dl (7-17); Calcium 9.2 mg/dl (8.4-10.2); Carbon Dioxide 29 mmol/L (22.0-30.0); Estimated Glomerular Filt Rate 129 ml/min (>60); GFR (African American) 156 ML/MIN (>60); Globulin 2.4 g/dL (1.3-3.2); Glucose 329 mg/dl (74-100); Total Protein,Serum 6.4 g/dl (6.3-8.2)
== END 2024-07-29 23:59 | disposition home or self-care (01) ==
LOC: LAB 14:49
PROVIDERS: PCP Nurse Practitioner Family; Visit Provider Internal Medicine Adolescent Medicine
DX: R74.01 Elevation of levels of liver transaminase levels (principal); E11.00 Type 2 diabetes mellitus with hyperosmolarity without nonketotic hyperglycemic-hyperosmolar coma (NKHHC)
CPT/HCPCS: 36415; 80053